=== PATIENT | female | born 1960 | race Caucasian/White ===

== ENCOUNTER → 2016-07-04 | Outpatient (CLI) | payer OTHER | END | disposition home or self-care (01) | LOC: CFH 07:33 | PROVIDERS: ATTEND Family Medicine | DX: R92.8 Other abnormal and inconclusive findings on diagnostic imaging of breast (principal); R92.1 Mammographic calcification found on diagnostic imaging of breast | CPT/HCPCS: G0206 ==

== ENCOUNTER → 2017-09-24 | Outpatient (CLI) | payer BC | END | disposition home or self-care (01) | LOC: CFH 10:17 | PROVIDERS: ATTEND Family Medicine | DX: Z12.31 Encounter for screening mammogram for malignant neoplasm of breast (principal) | CPT/HCPCS: 77063; 77067 ==

== ENCOUNTER 2020-06-04 08:07 | Emergency (ER) | payer OTHER ==
[~2020-06-04] VITALS: Ht 154.9 cm; Wt 112.4 kg
[2020-06-04] MEDS ORDERED: CHLORDIAZEPOXIDE 10 MG CAPSULE PO PRN ×2 (08:30)
[2020-06-04] MEDS ORDERED: KETOROLAC 30 MG/1 ML IM ONE (08:30)
--- NOTE | 2020-06-04 08:32 | NUR ---
first contact with pt. pt c/o left knee pain and swelling. no trauma per pt. no redness/hot to touch noted. pt's aox4. resps even and unlabored.
[2020-06-04] MEDS ORDERED: KETOROLAC 30 MG/1 ML ONE (08:34)
--- NOTE | 2020-06-04 08:50 | NUR ---
pt medicated per emar. pt tolerated well.
--- NOTE | 2020-06-04 09:08 | NUR ---
us in room at this time.
[2020-06-04] MEDS ORDERED: OXYcodone/APAP 5/325MG TABLET ONE (10:13)
[2020-06-04 10:16] VITALS: BP 120/78
--- NOTE | 2020-06-04 10:18 | NUR ---
pt amb to br and back to room with steady gait.
--- NOTE | 2020-06-04 10:18 | NUR ---
pt medicated per emar. pt tolerated well.
[2020-06-04] MEDS ORDERED: OXYcodone/APAP 5/325MG TABLET PO ONE (10:30)
--- NOTE | 2020-06-04 10:36 | NUR ---
Patient given discharge instructions and they have confirmed that they understand the instructions.
== END 2020-06-04 10:36 | disposition home or self-care (01) ==
LOC: ED 08:31
DX: M71.22 Synovial cyst of popliteal space [Baker], left knee (principal); M25.561 Pain in right knee; I10 Essential (primary) hypertension
CPT/HCPCS: 73564; 93971; 96372; 99284; J1885